=== PATIENT | male | born 2000 | race Two or more races ===

== ENCOUNTER 2022-01-30 21:03 | Emergency (ER) | payer OTHER ==
[~2022-01-30] VITALS: Ht 180.3 cm; Wt 68.0 kg
== END 2022-01-30 22:33 | disposition home or self-care (01) ==
LOC: ER 21:03 → EMR PED 21:08 → ER 21:08 → EMR PED 22:33
DX: S93.401A Sprain of unspecified ligament of right ankle, initial encounter (principal); X50.1XXA Overexertion from prolonged static or awkward postures, initial encounter; Y93.59 Activity, other involving other sports and athletics played individually; Y92.838 Other recreation area as the place of occurrence of the external cause; Y99.9 Unspecified external cause status

== ENCOUNTER 2022-05-28 21:56 | Emergency (ER) | payer OTHER ==
[~2022-05-28] VITALS: Ht 180.3 cm; Wt 68.0 kg
[2022-05-29] MEDS ORDERED: KETO10TA2 PO (00:39)
== END 2022-05-29 00:52 ==
LOC: EMR PED 21:56
DX: S93.401A Sprain of unspecified ligament of right ankle, initial encounter (principal); X58.XXXA Exposure to other specified factors, initial encounter; Y93.67 Activity, basketball; Y92.89 Other specified places as the place of occurrence of the external cause; Y99.9 Unspecified external cause status